=== PATIENT | female | born 1955 | race Caucasian/White ===

== ENCOUNTER 2021-12-29 06:56 | Day surgery (SDC) | payer MEDICAID, MEDICARE ==
[2021-12-29] MEDS ORDERED: Propofol 200 MG/20 ML SDV IV ONE (06:57)
[2021-12-29] MEDS ORDERED: Lidocaine 2% 100 MG/5 ML Syringe IVPUSH ONE (06:57)
[2021-12-29] MEDS ORDERED: Lactated Ringers 1,000 ML IV SCH (07:00)
[2021-12-29] MEDS ORDERED: Sodium Chloride 0.9% 10 ML Syringe FLUSH PRN (07:00)
[2021-12-29 07:21] VITALS: BP 131/85; PULSE 89
== END 2021-12-29 10:02 | disposition home or self-care (01) ==
LOC: FB.SDS 06:56
PROVIDERS: ATTEND Surgery
DX: K57.30 Diverticulosis of large intestine without perforation or abscess without bleeding (principal); K59.00 Constipation, unspecified; K64.4 Residual hemorrhoidal skin tags; E11.9 Type 2 diabetes mellitus without complications; E66.9 Obesity, unspecified; Z88.5 Allergy status to narcotic agent; Z79.82 Long term (current) use of aspirin; Z79.899 Other long term (current) drug therapy; Z98.890 Other specified postprocedural states; Z68.34 Body mass index [BMI] 34.0-34.9, adult
CPT/HCPCS: 00811-QZ; 82947; J2704; J7120